=== PATIENT | female | born 1970 | race Caucasian/White ===

== ENCOUNTER 2022-08-11 08:30 | Day surgery (SDC) | payer BC ==
[2022-08-07 13:01] LABS: Hemoglobin 14.9 g/dL (12.0-15.5); Mean Corpuscular HGB CONC 36.3 g/dL (32.0-36.0); Mean Corpuscular Hemoglobin 32.3 pg (27.0-33.0); Mean Corpuscular Volume 88.7 fl (81.6-98.3); Mean Platelet Volume 9.4 fl (7.4-10.4); Platelet Count 291 10x3/uL (150-450); RBC Distribution Width 11.8 % (11.5-14.5); Red Blood Cell (RBC) Count 4.62 10x6/uL (3.90-5.03); White Blood Cell (WBC) Count 7.1 10x3/uL (3.5-10.5)
[2022-08-07 13:30] LABS: BHCG - Serum Negative (NEGATIVE); Pregs Control Background? CLEAR/WHITE (CLR/WHITE); Pregs Control Bar Appear? YES (CONTROL BAR)
[2022-08-10 09:58] VITALS: BMI 20.5
[2022-08-11] MEDS ORDERED: Rocuronium Bromide 10 MG/ML (10ML VIAL) ONE (08:49)
[2022-08-11] MEDS ORDERED: PROPOFOL 20 ML ONE (08:49)
[2022-08-11] MEDS ORDERED: Lidocaine 1% PF 5 ML VIAL ONE (08:49)
[2022-08-11] MEDS ORDERED: Famotidine/PF 20 mg/2ml Vial ONE (09:04)
[2022-08-11] MEDS ORDERED: Gabapentin 300 MG CAP ONE (09:04)
[2022-08-11] MEDS ORDERED: CeleCOXIB 100 MG CAP ONE (09:05)
[2022-08-11] MEDS ORDERED: Bupivacaine PF 0.5% 30 ML VIAL ONE (10:48)
[2022-08-11] MEDS ORDERED: EPINEPHrine 1 MG/ML AMP ONE (10:49)
[2022-08-11] MEDS ORDERED: Promethazine HCl 25 MG/ML VIAL ONE (10:58)
[2022-08-11] MEDS ORDERED: HYDROmorphone 0.5 MG/0.5 ML SYRINGE ONE (10:59)
[2022-08-11] MEDS ORDERED: Fentanyl 100 MCG/2 ML VIAL ONE (10:59)
[2022-08-11] MEDS ORDERED: Ondansetron PF 4 MG/2 ML Vial ONE (11:00)
[2022-08-11] MEDS ORDERED: Dexamethasone 4 mg/ml Vial ONE (11:00)
[2022-08-11] MEDS ORDERED: CEFAZOLIN 2 GM VIAL ONE (11:06)
[2022-08-11] MEDS ORDERED: Ropivacaine 0.2% 550 ML 750 ML NERVE BLCK SCH (11:30)
[2022-08-11] MEDS ORDERED: ePHEDrine Sulfate 50 MG/10 ML VIAL ONE (12:26)
[2022-08-11] MEDS ORDERED: Glycopyrrolate 0.2 MG/ML 5 ML SYRINGE ONE (12:27)
[2022-08-11] MEDS ORDERED: PHENYLEPHRINE-NS 100 MCG/ML 10 ML SYRINGE ONE (14:10)
== END 2022-08-11 16:10 | disposition home or self-care (01) ==
LOC: CSHSDC 08:30
PROVIDERS: ATTEND Obstetrics & Gynecology
PROC: 0UT74ZZ Resection of Bilateral Fallopian Tubes, Percutaneous Endoscopic Approach (ICD-10-PCS; principal; 2022-08-11)
PROC: 0UT94ZZ Resection of Uterus, Percutaneous Endoscopic Approach (ICD-10-PCS; principal; 2022-08-11)
DX: D25.9 Leiomyoma of uterus, unspecified (principal); N73.6 Female pelvic peritoneal adhesions (postinfective); E78.00 Pure hypercholesterolemia, unspecified; G89.18 Other acute postprocedural pain; Z79.899 Other long term (current) drug therapy
CPT/HCPCS: 84703; 85027; 86850; 86900; 86901; 88307; A4306; J0171; J1100; J1170; J2405; J2550; J2704; J2795; J3010; S0020; S0028